=== PATIENT | male | born 1965 | race African-American/Black ===

== ENCOUNTER 2017-02-13 02:07 | Emergency (ER) | payer OTHER ==
[~2017-02-13] VITALS: Ht 188 cm; Wt 130.0 kg
[~2017-02-13 02:07] MED LIST: HYDR-2768 PO; VASO10TA8 PO
[2017-02-13 02:10] VITALS: BP 147/87; PULSE 75; RESP 14; TEMP 98.5; O2SAT 97
[2017-02-13] MEDS ORDERED: DEXAMETHASONE SOD PHOS 20 MG/5 ML VIAL IM ONE (03:00)
--- NOTE | 2017-02-13 03:00 | PD ---
HPI Chief Complaint: ENT Complaint Time Seen by Provider: 02:30 Travel History International Travel<30 days: No Contact w/Intl Traveler<30days: No Traveled to known affect area: No History of Present Illness HPI 51-year-old male with history of hypertension, presents to the department for evaluation of sore throat, onset 2 hours ago when he woke up. States he has not been recently ill. He has had no fever or chills. Pain is severe, constant , makes it difficult to swallow. He is able to swallow his secretions. He denies any difficulty breathing. Denies any nausea or vomiting. He has no other symptoms to report. PFSH Past Medical History Blood Disorders: No Heart Rhythm Problems: No Cancer: No Cardiac Catheterization: No Cardiovascular Problems: Yes (HTN) High Cholesterol: No Congestive Heart Failure: No Diabetes: No Diminished Hearing: No Endocrine: No Genitourinary: No Hypertension: Yes Musculoskeletal: No Neurologic: No Psychiatric: No Reproductive: No Respiratory: No Immunizations Current: No Myocardial Infarction: No Past Surgical History AICD: No Arteriovenous Shunt: No Coronary Artery Bypass Graft: No Insulin Pump: No Joint Replacement: No Pacemaker: No Other Surgery: Yes (RIGHT HEEL) Social History Alcohol Use: Yes (RARE) Tobacco Use: No Substance Use: No Allergies-Medications (Allergen,Severity, Reaction): Coded Allergies: No Known Allergies (Verified , 02/13/17) Reported Meds & Prescriptions Reported Meds & Active Scripts Active Review of Systems Except as stated in HPI: all other systems reviewed are Neg Physical Exam Narrative GENERAL: Well-nourished male patient, in no acute distress SKIN: Focused skin assessment warm/dry. HEAD: Atraumatic. Normocephalic. EYES: Pupils equal and round. No scleral icterus. No injection or drainage. ENT: No nasal bleeding or discharge. Mucous membranes pink and moist. 2+ tonsillar edema with erythema. No exudates. NECK: Trachea midline. No JVD. CARDIOVASCULAR: Regular rate and rhythm. No murmur appreciated. RESPIRATORY: No accessory muscle use. Clear to auscultation. Breath sounds equal bilaterally. GASTROINTESTINAL: Abdomen soft, non-tender, nondistended. Hepatic and splenic margins not palpable. MUSCULOSKELETAL: No obvious deformities. No clubbing. No cyanosis. No edema. NEUROLOGICAL: Awake and alert. No obvious cranial nerve deficits. Motor grossly within normal limits. Normal speech. PSYCHIATRIC: Appropriate mood and affect; insight and judgment normal. Data Data Last Documented VS Vital Signs Date Time Temp Pulse Resp B/P (MAP) Pulse Ox O2 Delivery O2 Flow Rate FiO2 02/13/17 02:10 98.5 75 14 147/87 (107) 97 Room Air Orders Orders Dexamethasone Inj (Decadron Inj) (02/13/17 03:00) Group A Rapid Strep Screen (02/13/17 02:59) Strep Culture (Group A) (02/13/17 03:00) MDM Medical Decision Making Medical Screen Exam Complete: Yes Emergency Medical Condition: Yes Medical Record Reviewed: Yes Differential Diagnosis Pharyngitis versus tonsillitis versus uvulitis versus cold versus allergies Narrative Course 51-year-old male presents to emergency department for evaluation of 2 hour onset of sore throat. Patient appears without distress. His vital signs are stable. He does have 2+ tonsillar edema, erythema, without exudate. Patient is given a dose of Decadron. Strep screen is sent and negative. Results are discussed with the patient. I have discussed symptomatic treatment with him. He'll be discharged home at this time. He agrees to return immediately with any acute worsening symptoms. Diagnosis Primary Impression: Pharyngitis Qualified Codes: J02.9 - Acute pharyngitis, unspecified Referrals: Primary Care Physician Patient Instructions: General Instructions, Pharyngitis (ED) Departure Forms: Tests/Procedures, Work Release Enter return to work date: Feb 16, 2017 Additional Instructions: Warm salt water gargles may help to alleviate symptoms Tylenol and/or ibuprofen as directed on the package as needed for fever and/or pain Avoid abrasive and acidic foods Follow up with a primary care provider Return to ED with acute worsening of symptoms Med/Other Pt SpecificInfo: No Change to Meds Disposition: 01 DISCHARGE HOME Condition: Stable MaloneyIbis torres LYNDA Feb 13, 2017 03:00
== END 2017-02-13 08:35 | disposition home or self-care (01) ==
LOC: NEPD 02:07
DX: J02.9 Acute pharyngitis, unspecified (principal)
CPT/HCPCS: 87081; 87880; 96372; 99284; J1100